=== PATIENT | male | born 1955 | race African-American/Black ===

== ENCOUNTER 2019-01-22 14:10 | Inpatient (IN) | payer MEDICAID ==
[~2019-01-22] VITALS: Ht 172.7 cm; Wt 111.1 kg
[~2019-01-22 14:10] MED LIST: AMAN100C16 PO; ENAL2.5T PO; FOLI-43 PO; INSULIN; METF-816 PO; PROT20 PO
[2019-01-22] MEDS ORDERED: SODIUM CHLORIDE 0.9% 1,000 ML IV ONE (14:29)
[2019-01-22 14:51] LABS: BASOPHILS % 0.6 % (0.0-2.0); EOSINOPHILS % 1.2 % (0.0-5.0); HEMOGLOBIN. 17.7 g/dL (14.0-18.0); LYMPHOCYTES % 26.7 % (20.0-50.0); MEAN CORPUSCULAR HEMOGLOBIN 30.2 pg (28.0-32.0); MEAN CORPUSCULAR VOLUME 88.6 fL (80.0-94.0); MEAN PLATELET VOLUME 9.9 fl (7.4-10.4); MONOCYTES % 11.5 % (2.0-8.0); PLATELET 169 x1000/uL (130-400); RED BLOOD CELL COUNT 5.87 mill/uL (4.7-6.1); RED CELL DISTRIBUTION WIDTH 16.3 % (11.6-14.6)
[2019-01-22 14:55] LABS: CHLORIDE 93 mEq/L (98-107)
[2019-01-22 15:04] LABS: CLARITY URINE CLEAR (CLEAR); COLOR URINE YELLOW (YELLOW); KETONES URINE NEGATIVE (NEGATIVE); LEUKOCYTE ESTERASE URINE NEGATIVE (NEGATIVE); NITRITE URINE NEGATIVE (NEGATIVE); OCCULT BLOOD URINE NEGATIVE (NEGATIVE); PROTEIN URINE NEGATIVE (NEGATIVE); SPECIFIC GRAVITY URINE 1.029 (1.005-1.030); UROBILINOGEN URINE 0.2 E.U./dL (0.2-1.0)
[2019-01-22 16:32] LABS: *AMPHETAMINES SCREEN URINE NEGATIVE (NEGATIVE); *BARBITURATES SCREEN URINE NEGATIVE (NEGATIVE); *BENZODIAZEPINES SCREEN URINE NEGATIVE (NEGATIVE); *COCAINE SCREEN URINE NEGATIVE (NEGATIVE); METHADONE URINE SCREEN NEGATIVE (NEGATIVE); OPIATES URINE SCREEN NEGATIVE (NEGATIVE)
[2019-01-22 16:33] LABS: CANNABINOID URINE SCREEN NEGATIVE (NEGATIVE); PHENCYCLIDINE URINE SCREEN NEGATIVE (NEGATIVE)
[2019-01-22] MEDS ORDERED: LORAZEPAM 2MG/ML CPJ IV PRN (20:00)
[2019-01-22] MEDS ORDERED: IPRATROPIUM/ALBUTEROL 0.5-3(2.5)MG/3ML NEB INH PRN (20:00)
[2019-01-22] MEDS ORDERED: CLONIDINE 0.1MG TABLET PO PRN (20:00)
[2019-01-22] MEDS ORDERED: MORPHINE SULFATE 2 MG/ML CPJ (NOT FOR IM USE) IV PRN (20:00)
[2019-01-22] MEDS ORDERED: INSULIN REGULAR (HUMULIN R) 300UNITS/3ML SUBCUT ONE (20:45)
[2019-01-22 21:20] VITALS: BP 125/93
[2019-01-22] MEDS ORDERED: DEXTROSE 50% WATER 50ML SYRINGE IV PRN (22:00)
[2019-01-22] MEDS: INSULIN LISPRO 100 UNITS/ML SUBCUT SCH ×2 (22:00→22:52)
[2019-01-22] MEDS: BLOOD SUGAR DIAGNOSTIC STRIP TEST SCH (22:17)
[2019-01-22] MEDS ORDERED: INSULIN GLARGINE UD 100 UNITS/ML SYR SUBCUT NR (22:30)
[2019-01-23] VITALS: BP 126/85
[2019-01-23] MEDS: SODIUM CHLORIDE 0.9% 1,000 ML IV SCH ×2 (00:25→18:31)
[2019-01-23 04:00] VITALS: BP 108/83
[2019-01-23] MEDS: INSULIN LISPRO 100 UNITS/ML SUBCUT SCH ×7 (06:26→20:56)
[2019-01-23] MEDS: BLOOD SUGAR DIAGNOSTIC STRIP TEST SCH ×7 (06:26→20:56)
[2019-01-23 06:51] LABS: PHOSPHORUS 3.2 mg/dL (2.5-4.9)
[2019-01-23 07:55] VITALS: BP 112/76
[2019-01-23] MEDS: THIAMINE HCL 100MG TABLET PO SCH (08:54)
[2019-01-23 12:00] VITALS: BP 130/86
[2019-01-23] MEDS ORDERED: DEXTROSE 50% WATER 50ML SYRINGE IV PRN (12:15)
[2019-01-23] MEDS ORDERED: P20 PO (13:46)
[2019-01-23] MEDS ORDERED: METO-539 PO (13:47)
[2019-01-23] MEDS ORDERED: ASPI-1158 PO (13:48)
[2019-01-23] MEDS ORDERED: OMEP20TA2 PO (13:48)
[2019-01-23] MEDS ORDERED: FURO40TA5 PO (13:49)
[2019-01-23 16:00] VITALS: BP 123/93
[2019-01-23 20:00] VITALS: BP 131/88
[2019-01-24] VITALS: BP 128/70
[2019-01-24 04:00] VITALS: BP 125/83
[2019-01-24] MEDS: BLOOD SUGAR DIAGNOSTIC STRIP TEST SCH ×4 (06:29→12:31)
[2019-01-24] MEDS: INSULIN LISPRO 100 UNITS/ML SUBCUT SCH ×4 (06:36→12:38)
[2019-01-24 08:00] VITALS: BP 125/89
[2019-01-24] MEDS: SODIUM CHLORIDE 0.9% 1,000 ML IV SCH (08:39)
[2019-01-24] MEDS: THIAMINE HCL 100MG TABLET PO SCH (08:39)
[2019-01-24 11:59] VITALS: BP 129/95
[2019-01-24] MEDS ORDERED: METOPROLOL TARTRATE 50MG TABLET PO SCH (14:30)
[2019-01-24] MEDS ORDERED: PANTOPRAZOLE 40MG DR TABLET PO SCH (14:30)
[2019-01-24] MEDS ORDERED: ASPIRIN 81MG TABLET PO SCH (14:30)
[2019-01-24] MEDS ORDERED: FOLIC ACID 1MG TABLET PO SCH (14:30)
[2019-01-24] MEDS ORDERED: PREDNISONE 20MG TABLET PO SCH (14:30)
[2019-01-24] MEDS ORDERED: METFORMIN HCL 500MG TABLET PO SCH (14:30)
[2019-01-24] MEDS ORDERED: OMEPRAZOLE 20MG CAPSULE EXTENDED RELEASE PO SCH (14:30)
[2019-01-24] MEDS ORDERED: FAMOTIDINE 20MG TABLET PO SCH (17:00)
[2019-01-24] MEDS ORDERED: ENALAPRIL 5MG TABLET PO SCH (21:00)
[2019-01-26 09:11] LABS: *CREATININE RANDOM URINE 150.7 mg/dL (Not Estab.); MICROALBUMIN RANDOM URINE 4.7 ug/mL (Not Estab.)
== END 2019-01-24 16:30 | disposition left against medical advice (07) | DRG 469 ==
LOC: ER 15:15 → 8WST 16:42 → ENRESERV 20:13
PROVIDERS: ADMIT Internal Medicine; ATTEND Internal Medicine
DX: N17.9 Acute kidney failure, unspecified (principal); E11.65 Type 2 diabetes mellitus with hyperglycemia; I42.9 Cardiomyopathy, unspecified; F20.9 Schizophrenia, unspecified; I10 Essential (primary) hypertension; E66.9 Obesity, unspecified; J44.9 Chronic obstructive pulmonary disease, unspecified; N48.5 Ulcer of penis; F10.21 Alcohol dependence, in remission; E87.1 Hypo-osmolality and hyponatremia; R74.8 Abnormal levels of other serum enzymes; Z68.37 Body mass index [BMI] 37.0-37.9, adult; Z79.84 Long term (current) use of oral hypoglycemic drugs; Z79.899 Other long term (current) drug therapy
CPT/HCPCS: 36415; 71045; 76700; 80061; 80305; 80320; 82043; 82570; 82962; 83036; 83735; 83880; 84100; 84300; 84443; 84484; 86694; 93005; 96374; 99285; J1815; J7030; G0480